=== PATIENT | female | born 2000 | race Caucasian/White ===

== ENCOUNTER 2021-02-10 23:09 | Emergency (ER) | payer SELFPAY ==
[~2021-02-10] VITALS: Ht 160 cm; Wt 91.2 kg
[2021-02-10] MEDS ORDERED: ONDANSETRON HCL 4 MG ORAL DISINTEGRATING TAB PO ONE (23:30)
[2021-02-10] MEDS ORDERED: ONDANSETRON ODT4 MG PO (23:30)
[2021-02-10] MEDS ORDERED: FAMOTIDINE20 MG PO (23:30)
[2021-02-10] MEDS ORDERED: THERAFLU FLU &1 EAC1 PO (23:30)
[2021-02-10] MEDS ORDERED: MAALOX MAXIMUM355 ML PO (23:30)
[2021-02-10] MEDS ORDERED: KETOROLAC TROMETHAMINE 30 MG/ML VIAL IM ONE (23:30)
[2021-02-10] MEDS ORDERED: KETOROLAC TROMETHAMINE 30 MG/ML VIAL ONE (23:38)
[2021-02-10] MEDS ORDERED: ONDANSETRON HCL 4 MG ORAL DISINTEGRATING TAB ONE (23:38)
[2021-02-10 23:47] VITALS: BP 112/70
== END 2021-02-10 23:47 | disposition home or self-care (01) ==
LOC: FSED 23:20
DX: K52.9 Noninfective gastroenteritis and colitis, unspecified (principal); B34.9 Viral infection, unspecified; J45.909 Unspecified asthma, uncomplicated
CPT/HCPCS: 81003; 81025; 96372; 99283; J1885; Q0162